=== PATIENT | male | born 2000 | race Hispanic/Latino ===

== ENCOUNTER 2020-12-02 02:58 | Emergency (ER) | payer OTHER ==
[~2020-12-02] VITALS: Ht 188 cm; Wt 97.5 kg
== END 2020-12-02 04:20 | disposition home or self-care (01) ==
LOC: ER 03:00
DX: M25.521 Pain in right elbow (principal); S60.511A Abrasion of right hand, initial encounter; R07.89 Other chest pain; W19.XXXA Unspecified fall, initial encounter; Y92.89 Other specified places as the place of occurrence of the external cause
CPT/HCPCS: 71046; 99283